=== PATIENT | male | born 1955 | race Caucasian/White ===

== ENCOUNTER 2017-07-03 06:19 | Inpatient (IN) | payer BC, OTHER ==
[2017-06-04 15:13] VITALS: BMI 29.0
--- NOTE | 2017-06-04 15:57 | PAT Medication Instructions ---
Service Date Jun 04, 2017. Current Home Medication List Amitriptyline Hcl (Elavil), 25 MG PO HS Aspirin (Aspirin Ec), 81 MG PO QAM Atorvastatin (Lipitor), 40 MG PO QPM Clonazepam (Klonopin), 0.5 MG PO QAM Clonazepam (Klonopin), 0.25 MG PO QPM Lisinopril (Zestril), 5 MG PO BID Meloxicam (Meloxicam), 1 TAB PO QAM Metoprolol Succ (Toprol Xl) (Toprol-Xl), 50 MG PO BID Morphine Sulfate Ir (Morphine Sulfate Ir), 30 MG PO BID PRN for Pain Multivitamin (Multivitamin), 1 TAB PO QAM Medication Instructions For Your Scheduled Surgery - Contact your surgeon for instructions for: Meloxicam (Meloxicam), 1 TAB PO QAM - Hold the following medications 24 hours prior to surgery--DO NOT TAKE THE NIGHT BEFORE OR THE MORNING OF THE SURGERY: Lisinopril (Zestril), 5 MG PO BID - Hold the following medications the morning of surgery: Multivitamin (Multivitamin), 1 TAB PO QAM - Take the following medications the morning of surgery with a sip of water: Aspirin (Aspirin Ec), 81 MG PO QAM Clonazepam (Klonopin), 0.5 MG PO QAM Metoprolol Succ (Toprol Xl) (Toprol-Xl), 50 MG PO BID Morphine Sulfate Ir (Morphine Sulfate Ir), 30 MG PO BID PRN for Pain (if needed , can be taken up to four hours before surgery) - Take the following medications as scheduled the night before surgery: Clonazepam (Klonopin), 0.25 MG PO QPM Atorvastatin (Lipitor), 40 MG PO QPM Amitriptyline Hcl (Elavil), 25 MG PO HS Metoprolol Succ (Toprol Xl) (Toprol-Xl), 50 MG PO BID Morphine Sulfate Ir (Morphine Sulfate Ir), 30 MG PO BID PRN for Pain (if needed, If you have any questions please call us at [phone] or [phone] or [phone]
--- NOTE | 2017-06-04 16:24 | DIAGNOSTIC IMAGING REPORT ---
CHEST 2 VIEWS ROUTINE HISTORY: Preop. COMPARISON: Chest 06/26/2016. FINDINGS: Cervical spinal fusion hardware is again noted. The heart is normal in size. No pleural effusions. No pneumothorax. A few bibasilar linear densities favor scarring or subsegmental atelectasis. The lungs are otherwise clear. IMPRESSION: A few bibasilar linear densities which favor scarring or atelectasis. Otherwise, no acute process within the chest. Electronically signed by: Erasmo Hinojosa M.D. 06/04/2017 4:23 PM Dictated Date/Time: 06/04/2017 4:22 PM
[2017-06-04 16:32] LABS: BASO % 0.3 %; BASO ABS # 0.03 K/uL (0-0.2); COMPLETE YES; EOS % 2.8 %; HEMATOCRIT 44.2 % (42-52); IG% 0.2 %; LYMPH % 29.6 %; LYMPH ABS # 2.65 K/uL (1.2-3.4); MEAN CELL VOLUME 85.7 fL (80-100); MEAN CORPUSCULAR HEMOGLOBIN 28.5 pg (25-34); MEAN CORPUSCULAR HGB CONC 33.3 g/dl (32-36); MEAN PLATELET VOLUME 10.4 fL (7.4-10.4); MONO % 10.9 %; NEUT % 56.2 %; PLATELET COUNT 254 K/uL (130-400); RED BLOOD COUNT 5.16 M/uL (4.7-6.1); URINE APPEARANCE CLEAR (CLEAR); URINE BILIRUBIN NEG (NEG); URINE COLOR YELLOW; URINE NITRITE NEG (NEG); URINE SPECIFIC GRAVITY 1.019 (1.000-1.030); UROBILINOGEN NEG (NEG); WHITE BLOOD COUNT 8.96 K/uL (4.8-10.8)
[2017-06-04 16:35] LABS: MANUAL MICROSCOPIC REQUIRED? NO; REVIEW REQ? NO
[2017-06-04 16:39] LABS: BUN/CREATININE RATIO 16.5 (10-20); CALCIUM 9.4 mg/dl (8.5-10.1); CREATININE 0.93 mg/dl (0.60-1.40); POTASSIUM 4.3 mmol/L (3.5-5.1)
[2017-06-04 16:40] LABS: INR 0.9 (0.9-1.1)
[2017-06-05 05:47] LABS: ESTIMATED AVERAGE GLUCOSE 126 mg/dl; HA1C FLAG Normal (Normal)
--- NOTE | 2017-06-29 10:46 | History and Physical ---
History & Physical Date Jun 29, 2017. Chief Complaint Left knee pain History of Present Illness The patient is a 62 year old male with complaints of left knee pain for several years. He has tried conservative therapy of NSAIDs, PT and injections with no relief. He would like to proceed with a left total knee arthroplasty. Past Medical/Surgical History Medical Problems: (1) Anxiety (2) CAD (coronary artery disease) (3) DDD (degenerative disc disease) (4) HLD (hyperlipidemia) (5) HTN (hypertension) Surgical Problems: (1) Hx of neck surgery (2) Hx of tonsillectomy (3) Right TKA Additional History Hepatic Disease: No Endocrine Disorder: No Kidney Disease: No Hypertension: Yes Heart Disease: Yes Bleeding Tendencies: No Infectious Diseases: No Allergies Coded Allergies: No Known Allergies (Unverified , 06/04/17) Home Medications Scheduled Amitriptyline Hcl (Elavil), 25 MG PO HS Aspirin (Aspirin Ec), 81 MG PO QAM Atorvastatin (Lipitor), 40 MG PO QPM Clonazepam (Klonopin), 0.5 MG PO QAM Clonazepam (Klonopin), 0.25 MG PO QPM Lisinopril (Zestril), 5 MG PO BID Meloxicam (Meloxicam), 1 TAB PO QAM Metoprolol Succ (Toprol Xl) (Toprol-Xl), 50 MG PO BID Multivitamin (Multivitamin), 1 TAB PO QAM Scheduled PRN Morphine Sulfate Ir (Morphine Sulfate Ir), 30 MG PO BID PRN for Pain Physical Examination Skin: warm/dry, no rash Eyes: normal inspection, EOMI ENT: normal ENT inspection Head: normocephalic, atraumatic Neck: supple, no adenopathy Respiratory/Chest: lungs clear, normal breath sounds Cardiovascular: regular rate, rhythm, no murmur Abdomen / GI: normal bowel sounds, non tender Extremities: normal inspection, + pertinent finding (decreased ROM and strength. Ligaments are intact, medial joint line tenderness) Diagnosis Primary osteoarthritis of the left knee Plan of Treatment Patient is scheduled for a left total knee arthroplasty. He has failed conservative therapies which include NSAIDs, PT, and injections. He would like to proceed with a Left total knee arthroplasty. Risks and benefits to surgery were discussed. Patient understands the risks and wishes to proceed. All questions were answered to his satisfaction. ASA 81mg BID will be for DVT prophylaxis and he would like to go home with home health.
[2017-07-03] VITALS (10 sets, daily range): BP systolic 101–135; BP diastolic 60–88; PULSE 75–103; TEMP 36.7–37.3; O2SAT 92–97; Ht 180.3 cm; Wt 95.0 kg
[~2017-07-03] VITALS: Ht 180.3 cm; Wt 95.0 kg
[~2017-07-03 06:19] MED LIST: ACETAMINOPHEN 500 MG TAB PO SCH; AMT50 PO; ASPI81TA28 PO; ATOR-24 PO; CEFAZOLIN 3000MG IV PUSH 15 ML IV SCH; CLON0.5T3 PO; CeleBREX 200 MG CAP PO SCH; DEXAMETHASONE 4 MG TAB PO SCH; GABAPENTIN 300 MG CAP PO SCH; LACTATED RINGER'S 1000ML 1,000 ML IV SCH; LACTATED RINGER'S 1000ML IV SCH; LISI-729 PO; MELO15TA4 PO; METO50TA7 PO; MORP30TA PO; MULT-506 PO; ROPIVACAINE 5MG/ML 30 ML 150 MG, BUPIVACAINE 0.5% MPF INJ 30 ML, EpINEphrine HCL INJ 0.... INFIL SCH
[2017-07-03] MEDS: TRANEXAMIC ACID INJ 1,000 MG in SYRINGE 0 ML IV SCH ×2 (06:30→08:25)
[2017-07-03] MEDS ORDERED: ROPIVACAINE 0.5% 5 MG/ML 30 ML VIAL ONE (06:37)
[2017-07-03] MEDS ORDERED: BUPIVACAINE 0.5 % 5 MG/1 ML PF 10ML VIAL ONE (06:37)
[2017-07-03] MEDS ORDERED: BACITRACIN 50000 UNIT VIAL ONE (07:00)
[2017-07-03] MEDS ORDERED: POVIDONE-IODINE OP SOLN 30 ML BTL ONE (07:00)
[2017-07-03] MEDS ORDERED: ORTHO JOINT ANESTHETIC ONE (07:00)
--- NOTE | 2017-07-03 07:11 | History & Physical Bridge Note ---
H&P Re-Evaluation Bridge Note: I have examined the patient, reviewed the History & Physical and in the interval since the performance of the History & Physical I have noted the following changes of clinical significance: No changes noted
[2017-07-03] MEDS ORDERED: LIDOCAINE HCL 2% 2 ML VIAL (20MG/ML) ONE (07:17)
[2017-07-03] MEDS ORDERED: FENTANYL CITRATE INJ 50 MCG/1 ML 2 ML VIAL ONE (07:17)
[2017-07-03] MEDS ORDERED: MIDAZOLAM HCL 1 MG/ML 2ML VIAL ONE ×2 (07:17→09:07)
[2017-07-03] MEDS ORDERED: PROPOFOL IV EMULSION 10 MG/ML 20 ML VIAL IV ONE (07:17)
[2017-07-03] MEDS ORDERED: ONDANSETRON INJ 2 MG/ML 2 ML VIAL ONE (07:17)
[2017-07-03] MEDS ORDERED: HYDROmorphone INJ 2 MG/ML SYR/VIAL IV PRN (09:00)
[2017-07-03] MEDS ORDERED: EpHEDrine SULFATE INJ 50 MG/ML AMP IV PRN (09:00)
[2017-07-03] MEDS ORDERED: PHENYLEPHRINE 100MCG/ML 5ML SYR IV PRN (09:00)
[2017-07-03] MEDS ORDERED: ONDANSETRON INJ 2 MG/ML 2 ML VIAL IV PRN ×2 (09:00→10:45)
[2017-07-03] MEDS ORDERED: ATROPINE SULFATE 0.1 MG/ML 5ML SYR IV PRN (09:00)
--- NOTE | 2017-07-03 10:12 | [facility] Operative Report ---
Operative Report Operative Date Jul 03, 2017. Pre-Operative Diagnosis Left Knee End Stage Osteoarthritis Post-Operative Diagnosis Same Procedure(s) Performed Left Total Knee Arthroplasty Surgeon Dr. Quezada [employer] Director Surgeon(s) Mando Jordan PA-C Estimated Blood Loss 20 ML Findings As above Specimens Permanent A. Left Knee Bone and Tissue Drains 2 Hemovac Anesthesia spinal Complication(s) None Disposition Recovery Room / PACU Indications 62-year-old male with significant degenerative joint disease left knee. He is [id number] medial compartment. He has failed conservative measures clean injection anti-inflammatories and rehabilitation. He wishes to proceed with a left total knee arthroplasty Description of Procedure Risks benefits and alternatives of surgery including but not limited to infection, DVT, pain, stiffness, need for surgery, damage to blood vessels, damage to nerves or risks of anesthesia were discussed with the patient and they wished to proceed. The patient was identified and the laterality was confirmed and marked. They received a preoperative antibiotic as well as a spinal anesthetic and an abductor canal block. A well-padded tourniquet was applied and then the limb was prepped and draped in standard manner with ChloraPrep. The limb was exsanguinated and the tourniquet was inflated. I made a standard anterior incision. I sharply incised the skin then utilized Bovie electrocautery as well as the aqua mantis to achieve hemostasis. I made a medial parapatellar arthrotomy immobilized the patella laterally. I then excised the anterior horns of the medial and lateral meniscus as well as the infrapatellar fat pad. I elevated a portion of the MCL off of the tibia. I then pinned into place a patient-matched distal femoral cutting guide and made my distal femoral resection. I then pinned into place the 5 in 1 femoral cutting guide. I made my anterior, posterior and chamfer cuts. I then excised the cruciates and the remaining portions of the menisci. I then pinned into place a patient- matched tibial cutting guide and made my tibial resection. I then pinned into place the tibial plate a utilizing alignment lake to confirm rotation. I then cut for the post. Utilizing a lamina turbinated bone grinder and I then removed posterior osteophytes off the femur. I then placed a trial femur into position and cut for the trochlear component. I then sequentially trialed to size the polyethylene until there was good soft tissue balancing and range of motion. I then prepared the patella with a freehand cut utilizing sagittal saw. I sized and drilled for the patella. There was good tracking to the patella no lateral release was needed. All the trial components were removed. The deep tissues were anesthetized with an ortho mix solution. Then with Simplex HV with gentamicin cement, I cemented my definitive components. Definitive components, [employer] 2: Femur 7. Tibia 6 Poly 9 Patella 35 oval A betadine soak was performed. A deep drain was placed. The arthrotomy was closed with interrupted #1 Vicryl suture subcutaneous tissue was closed with interrupted 2-0 Vicryl suture. The skin was closed with with naya. A Silverlon was placed. Sterile dressings were applied. All needle and sponge counts were correct at the end of the procedure patient was transferred to the PACU in stable condition without apparent complication. The PA-C was necessary for assistance with procedure for assistance in positioning, prepping, draping, retraction and closure. I attest to the content of the Intraoperative Record and any orders documented therein. Any exceptions are noted below.
[2017-07-03] MEDS ORDERED: HYDROmorphone INJ 0.5 MG/0.5 ML SYR IV PRN (10:45)
[2017-07-03] MEDS ORDERED: BISACODYL 10 MG SUPP PR PRN (10:45)
[2017-07-03] MEDS ORDERED: MAGNESIUM HYDROXIDE SUSP 30 ML UDC PO PRN (10:45)
[2017-07-03] MEDS ORDERED: TAMSULOSIN HCL 0.4 MG CAP PO PRN (10:45)
[2017-07-03] MEDS ORDERED: ALUMINUM/MAGNESIUM/SIMETH (MAALOX MAX) 30 ML UDC PO PRN (10:45)
--- NOTE | 2017-07-03 11:02 | DIAGNOSTIC IMAGING REPORT ---
LEFT KNEE 2 VIEWS CLINICAL HISTORY: Degenerative arthritis. Postsurgical study. COMPARISON: None. DISCUSSION: There are postsurgical changes of a total left knee arthroplasty and patellar resurfacing. Overlying skin naya and surgical drains are evident. The femoral and tibial components appear well seated. There is air in soft tissues consistent with recent surgery. IMPRESSION: Postsurgical changes of a total left knee arthroplasty. Electronically signed by: Jim Petersen M.D. 07/03/2017 11:01 AM Dictated Date/Time: 07/03/2017 11:00 AM
--- NOTE | 2017-07-03 11:41 | Anesthesiology Progress Note ---
Anesthesia Post Op Note Date & Time Jul 03, 2017 at 11:41 Vital Signs Pain Intensity: 0 Vital Signs Past 12 Hours Date Time Temp Pulse Resp B/P (MAP) Pulse Ox O2 Delivery O2 Flow Rate FiO2 07/03/17 11:34 74 16 07/03/17 11:34 75 16 95 07/03/17 11:30 110/70 07/03/17 11:29 78 16 07/03/17 11:29 80 16 95 07/03/17 11:26 122/74 07/03/17 11:25 37.1 07/03/17 11:24 71 12 95 07/03/17 11:24 71 12 07/03/17 11:23 71 16 07/03/17 11:23 72 16 94 07/03/17 11:20 105/74 07/03/17 11:19 106/68 07/03/17 11:18 74 14 97 07/03/17 11:18 74 14 07/03/17 11:13 76 22 97 07/03/17 11:13 75 22 07/03/17 11:12 79 16 07/03/17 11:12 79 16 96 07/03/17 11:11 111/69 07/03/17 11:07 76 16 07/03/17 11:07 75 16 95 07/03/17 11:06 101/64 07/03/17 11:02 71 16 07/03/17 11:02 71 16 95 07/03/17 11:01 101/66 07/03/17 11:00 72 16 07/03/17 11:00 72 16 95 07/03/17 10:57 99/61 07/03/17 10:55 76 15 95 07/03/17 10:55 77 15 07/03/17 10:51 102/66 07/03/17 10:50 74 15 07/03/17 10:50 74 15 97 07/03/17 10:45 78 20 07/03/17 10:45 91 20 97 07/03/17 10:41 142/78 07/03/17 10:40 85 16 07/03/17 10:40 36.0 89 16 142/78 99 Nasal Cannula 2 07/03/17 10:40 85 16 98 07/03/17 06:49 36.9 75 18 135/88 97 Room Air Notes Mental Status: alert / awake / arousable, participated in evaluation Pt Amnestic to Procedure: Yes Nausea / Vomiting: adequately controlled Pain: adequately controlled Airway Patency, RR, SpO2: stable & adequate BP & HR: stable & adequate Hydration State: stable & adequate Anesthetic Complications: no major complications apparent
[2017-07-03] MEDS: FERROUS GLUCONATE 324 MG TAB PO SCH ×2 (14:06→18:10)
[2017-07-03] MEDS: CEFAZOLIN IV 2,000 MG in SYRINGE 0 ML IV SCH ×2 (14:07→22:43)
[2017-07-03] MEDS: D5W AND 1/2NSS + 20MEQ KCL 1,000 ML IV SCH ×2 (14:07→23:42)
[2017-07-03] MEDS: ACETAMINOPHEN 500 MG TAB PO SCH ×2 (14:07→21:59)
[2017-07-03] MEDS ORDERED: INFLUENZA ADMINISTRATION CHARGE ONE (15:15)
[2017-07-03] MEDS ORDERED: INFLUENZA VIRUS QUAD VACCINE 0.5 ML SYR IM. ONE (15:15)
[2017-07-03] MEDS: OXYCODONE HCL IR 5 MG TAB (IMMEDIATE RELEASE) PO PRN ×2 (15:26→23:42)
[2017-07-03] MEDS: ATORVASTATIN 40 MG TAB PO SCH (20:52)
[2017-07-03] MEDS: LISINOPRIL 5 MG TAB PO SCH (20:52)
[2017-07-03] MEDS: ASPIRIN 81 MG ECTAB PO SCH (20:52)
[2017-07-03] MEDS: DOCUSATE SODIUM 100 MG CAP PO SCH (20:52)
[2017-07-03] MEDS: AMITRIPTYLINE HCL 25 MG TAB PO SCH (20:52)
[2017-07-03] MEDS: MoRPHine SULFATE CR 15 MG TAB (MS CONTIN) PO SCH (20:53)
[2017-07-03] MEDS: CLONAZEPAM 0.5 MG TAB PO SCH (20:53)
[2017-07-03] MEDS: SENNA 8.6 MG TAB PO SCH (20:53)
[2017-07-03] MEDS: METOPROLOL SUCC 50MG EXT REL TAB PO SCH (20:53)
[2017-07-04] MEDS: TRAMADOL HCL 50 MG TAB PO PRN ×3 (02:12→13:50)
[2017-07-04 03:56] VITALS: BP 118/68; PULSE 88; TEMP 36.7; O2SAT 92
[2017-07-04] MEDS: OXYCODONE HCL IR 5 MG TAB (IMMEDIATE RELEASE) PO PRN ×4 (04:12→23:10)
[2017-07-04] MEDS: ACETAMINOPHEN 500 MG TAB PO SCH ×3 (05:49→21:54)
[2017-07-04 06:07] LABS: HEMATOCRIT 35.8 % (42-52); MEAN CORPUSCULAR HEMOGLOBIN 28.7 pg (25-34); MEAN CORPUSCULAR HGB CONC 33.8 g/dl (32-36); MEAN PLATELET VOLUME 10.5 fL (7.4-10.4); PLATELET COUNT 215 K/uL (130-400); RED BLOOD COUNT 4.21 M/uL (4.7-6.1); WHITE BLOOD COUNT 19.97 K/uL (4.8-10.8)
[2017-07-04 06:36] LABS: CALCIUM 8.5 mg/dl (8.5-10.1); CREATININE 0.92 mg/dl (0.60-1.40); POTASSIUM 4.3 mmol/L (3.5-5.1)
--- NOTE | 2017-07-04 07:12 | Orthopedic Progress Note ---
Orthopedic Progress Note Date of Service Jul 04, 2017. Subjective Post OP Day: 1 Reports: feeling well, pain controlled w PO medications, Denies: complaints, chest pain, SOB, nausea / vomiting, light headedness, calf pain Objective calves soft nontender, N/V intact, capillary refill less than 2 sec., dressing C /D/I, A&O x3, toes mobile, hemovac drainage (250cc/150cc) Date Time Temp Pulse Resp B/P (MAP) Pulse Ox O2 Delivery O2 Flow Rate FiO2 07/04/17 03:56 36.7 88 16 118/68 (85) 92 Room Air 07/03/17 23:30 Room Air 07/03/17 23:25 36.7 97 16 101/60 (74) 93 Room Air 07/03/17 20:42 103 121/81 (94) 07/03/17 19:10 36.8 103 18 101/65 (77) 92 Room Air 07/03/17 16:13 36.7 96 18 106/67 (80) 97 Nasal Cannula 2.0 07/03/17 15:30 96 Nasal Cannula 2.0 07/03/17 15:10 36.7 92 18 106/66 (79) 96 Nasal Cannula 2.0 07/03/17 14:09 91 16 109/77 (88) 97 Nasal Cannula 2.0 07/03/17 13:43 37.3 88 17 114/77 (89) 96 Nasal Cannula 2.0 07/03/17 13:10 Nasal Cannula 2.0 07/03/17 13:10 94 Nasal Cannula 2.0 07/03/17 13:10 37.1 90 16 104/72 (83) 94 Nasal Cannula 2.0 07/03/17 12:55 100/66 07/03/17 12:52 87 10 07/03/17 12:52 86 10 94 07/03/17 12:50 91/65 07/03/17 12:47 88 10 95 07/03/17 12:47 88 10 07/03/17 12:45 103/76 07/03/17 12:42 89 14 07/03/17 12:42 92 14 95 07/03/17 12:41 98/67 07/03/17 12:37 84 9 95 07/03/17 12:37 84 9 07/03/17 12:35 98/63 07/03/17 12:32 98 18 07/03/17 12:32 99 18 94 07/03/17 12:30 96/63 07/03/17 12:27 85 10 94 07/03/17 12:27 85 10 07/03/17 12:25 103/69 07/03/17 12:22 86 12 07/03/17 12:22 86 12 95 07/03/17 12:20 115/70 07/03/17 12:17 86 12 94 07/03/17 12:17 87 12 07/03/17 12:16 107/69 07/03/17 12:12 80 7 94 07/03/17 12:12 79 7 07/03/17 12:11 99/69 07/03/17 12:09 37.4 07/03/17 12:07 83 9 94 07/03/17 12:07 83 9 07/03/17 12:05 98/69 07/03/17 12:02 80 9 94 07/03/17 12:02 81 9 07/03/17 12:01 82 16 07/03/17 12:01 81 16 94 07/03/17 11:56 77 16 93 07/03/17 11:56 78 16 07/03/17 11:55 103/68 07/03/17 11:51 88 18 97 07/03/17 11:51 87 18 07/03/17 11:50 79 16 94 07/03/17 11:50 79 16 07/03/17 11:45 75 16 07/03/17 11:45 75 16 98/68 94 07/03/17 11:40 83 20 96 07/03/17 11:40 84 20 07/03/17 11:35 77 16 99/64 95 07/03/17 11:35 76 16 07/03/17 11:34 74 16 07/03/17 11:34 75 16 95 07/03/17 11:30 110/70 07/03/17 11:29 78 16 07/03/17 11:29 80 16 95 07/03/17 11:26 122/74 17 11:25 37.1 07/03/17 11:24 71 12 95 07/03/17 11:24 71 12 07/03/17 11:23 71 16 07/03/17 11:23 72 16 94 07/03/17 11:20 105/74 07/03/17 11:19 106/68 07/03/17 11:18 74 14 97 07/03/17 11:18 74 14 07/03/17 11:13 76 22 97 07/03/17 11:13 75 22 07/03/17 11:12 79 16 07/03/17 11:12 79 16 96 07/03/17 11:11 111/69 07/03/17 11:07 76 16 07/03/17 11:07 75 16 95 07/03/17 11:06 101/64 07/03/17 11:02 71 16 07/03/17 11:02 71 16 95 07/03/17 11:01 101/66 07/03/17 11:00 72 16 07/03/17 11:00 72 16 95 07/03/17 10:57 99/61 07/03/17 10:55 76 15 95 07/03/17 10:55 77 15 07/03/17 10:51 102/66 07/03/17 10:50 74 15 07/03/17 10:50 74 15 97 07/03/17 10:45 78 20 07/03/17 10:45 91 20 97 07/03/17 10:41 142/78 07/03/17 10:40 85 16 07/03/17 10:40 36.0 89 16 142/78 99 Nasal Cannula 2 07/03/17 10:40 85 16 98 Laboratory Results 24 Hours: Test 07/04/17 04:59 Hematocrit 35.8 % Hemoglobin 12.1 g/dL Assessment & Plan Assessment: POD #1 Left TKA Plan: Medical Management DVT - ASA PT/OT Discharge - Home with Home Health possibly tomorrow Inhouse Planning Pain Management: Celebrex, PO Tylenol, Oxy IR DVT Prophylaxis: TEDs, SCDs, ASA
[2017-07-04 07:21] VITALS: BP 128/75; PULSE 82; TEMP 36.7; O2SAT 93
[2017-07-04] MEDS: CLONAZEPAM 0.5 MG TAB PO SCH ×2 (08:29→20:58)
[2017-07-04] MEDS: MoRPHine SULFATE CR 15 MG TAB (MS CONTIN) PO SCH ×2 (08:29→20:57)
[2017-07-04] MEDS: LISINOPRIL 5 MG TAB PO SCH ×2 (08:30→20:57)
[2017-07-04] MEDS: DOCUSATE SODIUM 100 MG CAP PO SCH ×2 (08:30→20:54)
[2017-07-04] MEDS: MULTIVITAMIN TAB PO SCH (08:31)
[2017-07-04] MEDS: METOPROLOL SUCC 50MG EXT REL TAB PO SCH ×2 (08:31→20:56)
[2017-07-04] MEDS: ASPIRIN 81 MG ECTAB PO SCH ×2 (08:31→20:55)
[2017-07-04] MEDS: FERROUS GLUCONATE 324 MG TAB PO SCH ×3 (08:31→18:20)
[2017-07-04] MEDS: D5W AND 1/2NSS + 20MEQ KCL 1,000 ML IV SCH (09:43)
[2017-07-04 12:11] VITALS: BP 107/67; PULSE 77; TEMP 36.5; O2SAT 95
[2017-07-04 15:30] VITALS: BP 106/67; PULSE 79; TEMP 36.6; O2SAT 94
--- NOTE | 2017-07-04 20:26 | Discharge Instructions ---
Discharge Instructions Date of Service Jul 04, 2017. Admission Reason for Admission: Left Knee Osteoarthritis Discharge Discharge Diagnosis / Problem: S/P Left TKA Discharge Goals Goal(s): Decrease discomfort, Improve function Activity Recommendations Activity Limitations: per Instructions/Follow-up section . Instructions / Follow-Up Instructions / Follow-Up ACTIVITY RECOMMENDATIONS: SELF CARE INSTRUCTIONS AFTER TOTAL KNEE REPLACEMENT A. You may need to continue a physical therapy program after discharge from the hospital. There are several options available to you. Your doctor will assist you in selecting the best one for you. 1. An out-patient facility 2 to 3 times a week for therapy or home therapy. 2. Continue working on all exercises taught to you in the hospital. Your goals should be to increase bending of your knee to 90 degrees and beyond and to fully straighten your knee. B. You may progress at your own pace from walking with a walker or crutches to a cane; then to no assistive devices. C. Make walking a part of your daily routine. Be up as much as comfortable with rest periods throughout the day. Rest with leg elevation is very important. Use the ice wrap frequently for the first 3-4 weeks. D. There are no restrictions on activities. You may ride in a car, shop, participate in district director and all social activities. E. Wear the long elastic stockings (ROQUE hose) 20 hours a day for 2 weeks after surgery. They can be removed several times a day for laundering and for a bath. F. You may shower, no tub baths until cleared by your doctor. SPECIAL CARE INSTRUCTIONS: VERY IMPORTANT TO READ AND REVIEW A. There are a few signs you need to watch for after you are home. Call [facility] if you notice any of the followin. Increased severe knee pain. Some pain is expected especially when you exercise. 2. Increased swelling in your leg or knee; pain or swelling of the calf muscle in either lower leg. 3. Any fluid drainage from the incision. 4. Shortness of breath or chest pain. B. Please call [facility] at if you have any concerns or questions about your operation or recovery. The doctor or his nurse will return your call promptly. C. You must take antibiotics before dental work, bladder, bowel or other surgery. Your doctor will provide you with a permanent care to carry describing this precaution. IMPORTANT: * REMEMBER TO TAKE ASPIRIN, 81 MG, TWICE DAILY FOR 4 WEEKS UNLESS OTHERWISE DIRECTED. THIS IS YOUR BLOOD THINNER. * CALL IF INCREASED PAIN, REDNESS, DRAINAGE OR FEVER GREATER THAT 101. * WEAR ROQUE HOSE 20 HOURS PER DAY FOR 2 WEEKS. * YOU MAY HAVE A LARGE BAND-AID LIKE DRESSING (SILVERON). THIS WILL REMAIN ON YOUR INCISION FOR 7 DAYS, THEN CAN BE REMOVED. IF INCISION IS LEAKING THROUGH DRESSING, CALL THE OFFICE . FOLLOW UP VISIT: If appointment is not already scheduled: Please call [facility] to make a follow-up appointment with Dr. Quezada or his PA for 2 weeks after your surgery at . Current Hospital Diet Patient's current hospital diet: Regular Diet Discharge Diet Recommended Diet: Regular Diet Procedures Procedures Performed: Left Total Knee Arthroplasty Pending Studies Studies pending at discharge: no Laboratory Results Hemoglobin A1c Test 06/04/17 16:00 Range/Units Estimated Average Glucose 126 mg/dl Hemoglobin A1c 6.0 H 4.5-5.6 % Medical Emergencies . Who to Call and When: Medical Emergencies: If at any time you feel your situation is an emergency, please call 911 immediately. . Non-Emergent Contact Non-Emergency issues call your: Surgeon Call Non-Emergent contact if: temperature is above 101.5, your pain is worsening, wound has increased drainage, wound has increased redness . "Provider Documentation" section prepared by Salvatore Cordero. . VTE Core Measure Inpt VTE Proph given/why not?: Other Anticoagulation (ASA) [place] Drug Monitoring Program Search Results: patient reviewed within database, no issues identified
[2017-07-04 20:55] VITALS: BP 110/73; PULSE 79
[2017-07-04] MEDS: ATORVASTATIN 40 MG TAB PO SCH (20:55)
[2017-07-04] MEDS: AMITRIPTYLINE HCL 25 MG TAB PO SCH (20:55)
[2017-07-04] MEDS: SENNA 8.6 MG TAB PO SCH (20:55)
[2017-07-05 00:05] VITALS: BP 115/70; PULSE 73; TEMP 36.8; O2SAT 96
[2017-07-05] MEDS: ACETAMINOPHEN 500 MG TAB PO SCH (05:06)
[2017-07-05] MEDS: OXYCODONE HCL IR 5 MG TAB (IMMEDIATE RELEASE) PO PRN ×2 (05:06→10:43)
--- NOTE | 2017-07-05 06:41 | Orthopedic Progress Note ---
Orthopedic Progress Note Date of Service Jul 05, 2017. Subjective Post OP Day: 2 Reports: feeling well, pain controlled w PO medications, Denies: complaints, chest pain, SOB, nausea / vomiting, light headedness, calf pain Objective calves soft nontender, N/V intact, capillary refill less than 2 sec., dressing C /D/I, A&O x3, toes mobile Window of silverlon shows mild bloody tinge Date Time Temp Pulse Resp B/P (MAP) Pulse Ox O2 Delivery O2 Flow Rate FiO2 07/05/17 00:05 36.8 73 16 115/70 (85) 96 Room Air 07/04/17 23:15 Room Air 07/04/17 20:55 79 110/73 (85) 07/04/17 15:30 36.6 79 18 106/67 (80) 94 Nasal Cannula 07/04/17 15:30 Room Air 07/04/17 12:11 36.5 77 18 107/67 (80) 95 Room Air 07/04/17 08:30 Room Air 07/04/17 07:21 36.7 82 18 128/75 (92) 93 Room Air Assessment & Plan Assessment: POD #2 Left TKA Plan: Medical Management DVT - ASA PT/OT Discharge - Home with Home Health Inhouse Planning Pain Management: Celebrex, PO Tylenol, Oxy IR DVT Prophylaxis: TEDs, SCDs, ASA
[2017-07-05] MEDS ORDERED: ACET-24 PO (06:46)
[2017-07-05] MEDS ORDERED: RXC5 PO (06:46)
[2017-07-05] MEDS ORDERED: ASPEC81 PO (06:46)
[2017-07-05] MEDS ORDERED: CLB200 PO (06:46)
[2017-07-05 07:39] VITALS: BP 97/63; PULSE 65; TEMP 36.9; O2SAT 95
[2017-07-05] MEDS: CLONAZEPAM 0.5 MG TAB PO SCH (07:44)
[2017-07-05] MEDS: MoRPHine SULFATE CR 15 MG TAB (MS CONTIN) PO SCH (07:45)
[2017-07-05] MEDS: TRAMADOL HCL 50 MG TAB PO PRN (07:46)
[2017-07-05] MEDS: METOPROLOL SUCC 50MG EXT REL TAB PO SCH (07:47)
[2017-07-05] MEDS: DOCUSATE SODIUM 100 MG CAP PO SCH (07:47)
[2017-07-05] MEDS: FERROUS GLUCONATE 324 MG TAB PO SCH (07:48)
[2017-07-05] MEDS: ASPIRIN 81 MG ECTAB PO SCH (07:48)
[2017-07-05] MEDS: MULTIVITAMIN TAB PO SCH (07:49)
[2017-07-05] MEDS: LISINOPRIL 5 MG TAB PO SCH (07:49)
[2017-07-05 09:52] VITALS: BP 97/63; PULSE 65; TEMP 36.9; O2SAT 95
--- NOTE | 2017-07-07 11:02 | DISCHARGE SUMMARY ---
DISCHARGE DIAGNOSIS: Degenerative joint disease, left knee. SECONDARY DIAGNOSES: Anxiety, coronary artery disease, degenerative disk disease, hyperlipidemia, and hypertension. CONSULTS: None. COMPLICATIONS: None. PROCEDURES: Left total knee arthroplasty performed by Dr. Quezada on 07/03/2017. BRIEF HISTORY: As dictated in the history and physical. HOSPITAL SUMMARY: The patient was admitted on the above date and had the above-noted surgery performed, which he tolerated well. On the first postoperative day, he was feeling well and pain was controlled and he had no complaints. Calves were soft and nontender, neurovascularly intact. Dressings clean, dry and intact. Toes were mobile. Vital signs were stable. He was afebrile. Hemoglobin was 12.1 and he was started on physical therapy protocol and continued on DVT prophylaxis and pain management. By the second postoperative day, the patient was feeling well and had good pain control. Calves remained soft and nontender. Dressings were intact. Toes were mobile. Silverlon dressing had some mild bloody drainage, but it was otherwise intact. Vital signs were stable. The patient was afebrile and progressing with physical therapy and it was felt he could be discharged to home with home health services on 07/05/2017. For further review, please see chart. LAB AND X-RAY DATA: As per chart. DISCHARGE INSTRUCTIONS: The patient was discharged to home in satisfactory condition on 07/05/2017. DIET: Regular. ACTIVITY: Follow TKA instruction sheets and special care instructions as noted. Follow up with Dr. Quezada in 2 weeks. The patient is to call for an appointment if one has not been made for you. DISCHARGE MEDICATIONS: Acetaminophen 1000 mg p.o. q. 8 hours, aspirin 81 mg p.o. b.i.d., Celebrex 1 tab p.o. b.i.d., and oxycodone 5-10 mg p.o. q. 4 hours p.r.n. Stop taking Meloxicam. Resume once daily dosing of aspirin after 30 days and resume home meds as listed.
== END 2017-07-05 10:50 | disposition home health service (06) | DRG 470 ==
LOC: C.ACU 06:19 → C.3E 07:50 → ENRESERV 12:42
PROVIDERS: ADMIT Orthopaedic Surgery; ATTEND Orthopaedic Surgery
PROC: 0SRD0J9 Replacement of Left Knee Joint with Synthetic Substitute, Cemented, Open Approach (ICD-10-PCS; principal; 2017-07-03 08:30)
DX: M17.12 Unilateral primary osteoarthritis, left knee (principal); I25.10 Atherosclerotic heart disease of native coronary artery without angina pectoris; E78.5 Hyperlipidemia, unspecified; I10 Essential (primary) hypertension; Z79.82 Long term (current) use of aspirin; Z79.899 Other long term (current) drug therapy